=== PATIENT | male | born 2005 | race Hispanic/Latino ===

== ENCOUNTER 2024-11-22 01:31 | Emergency (ER) | payer SELFPAY ==
[2024-11-22] VITALS (9 sets, daily range): BP systolic 109–132; BP diastolic 58–82; PULSE 51–84; RESP 12–23; TEMP 37.2; O2SAT 98–100
--- NOTE | ~2024-11-22 | CT_ITS ---
CT of the Abdomen and Pelvis: Indication: Abdominal pain Technique: 2.5 mm axial scans were obtained through the abdomen and pelvis following intravenous adm inistration of 100 cc of Omnipaque 350. Dose reduction technique was used on this scan by utilizing a utomated exposure control and iterative reconstruction technique. The dose-length product (DLP) was 2 70.18 mGy-cm. Findings: Scans through the lung bases are unremarkable. The liver, spleen, pancreas, gallbladder, adrenals and kidneys are within normal limits. No evidence of aortic aneurysm. No lymphadenopathy. Questionable extensive large bowel wall thickening versus underdistention. No abscess or free air. No bowel obstruction. Images through the pelvis were performed. Urinary bladder unremarkable. No pelvic mass seen. Impression: Questionable extensive large bowel wall thickening versus underdistention. Correlate for any possibil ity of infectious/inflammatory colitis. Reviewed, dictated and finalized at [facility]. Impression: Questionable extensive large bowel wall thickening versus underdistention. Barbara elate for any possibility of infectious/inflammatory colitis.
[2024-11-22] MEDS: MORPHINE SULFATE (*CRX) 4 MG/ML INJ IV PUSH ×2 (01:44→03:59)
[2024-11-22] MEDS: ONDANSETRON INJ 4 MG/2 ML VIAL IV PUSH (01:44)
--- NOTE | 2024-11-22 01:45 | ED_ITS ---
HPI - Abdominal Pain General Chief Complaint: Abdominal Pain Stated Complaint: RLQ pain x 20 min Time Seen by Provider: 11/22/24 01:32 History of Present Illness HPI narrative: Patient had been feeling fine when suddenly he started having sharp severe pain to his right lower abdomen, came out of nowhere, causes double over and call for help, associated with nausea vomiting and chills. Has never had symptoms like this before, no dysuria or hematuria, no back pain. Related Data Allergies Allergy/AdvReac Type Severity Reaction Status Date / Time No Known Allergies Allergy Verified 11/22/24 01:40 Review of Systems 2 Review of Systems: All systems reviewed & are unremarkable except as noted in HPI and below Exam 2 Narrative: EXAMINATION OF ORGAN SYSTEMS/BODY AREAS: Constitutional: Vital signs per nursing GENERAL:[No acute distress, non-toxic appearing.] HEAD: Normal with no signs of head trauma. EYES: EOMI, conjunctiva normal ENT: Hearing grossly intact LUNGS: Nonlabored breathing. HEART: [Regular rate and rhythm] ABD: Some tenderness over entire abdomen, most in the right lower quadrant, soft, no guarding. No flank tenderness EXT: Normal range of motion SKIN: [No rashes or lesions.] NEURO: [Alert and oriented x 3. No gross focal sensory or strength deficits.] PSYCH: Normal affect Course Vital Signs Vital signs: Vital Signs Temperature 98.9 F 11/22/24 01:33 Pulse Rate 83 11/22/24 01:33 Respiratory Rate 19 11/22/24 01:33 Blood Pressure 132/74 11/22/24 01:33 Pulse Oximetry 100 11/22/24 01:33 Oxygen Delivery Room Air 11/22/24 01:33 Temperature 98.9 F 11/22/24 01:33 Pulse Rate 51 L 11/22/24 05:30 Respiratory Rate 12 11/22/24 05:30 Blood Pressure 112/73 11/22/24 05:30 Pulse Oximetry 100 11/22/24 05:30 Oxygen Delivery Room Air 11/22/24 01:33 MDM - Abdominal Pain MDM Narrative Medical decision making narrative: Electronic medical record was reviewed. Patient presented to the ED with complaint of [abdominal pain and vomiting]. Vitals [were within acceptable limits]. Physical exam revealed [tenderness to palpation in right lower quadrant]. Denies any testicular or scrotal pain or dysuria. No flank pain. Based on the patient's history and physical exam, my differential includes but is not limited to [gastritis, gastroenteritis, appendicitis, nephrolithiasis]. [IV access was established by nursing staff. Patient was given zofran, morphine]. CBC, BMP, lipase, LFTs, bilirubin and alk phos were obtained. Labs were pertinent for labs within acceptable. [Decision was made to obtain a CT-abdomen to evaluate for acute abdominal process.] On re-evaluation, patient pain improved with morphine but still having significant pain so additional dose ordered. On re-evaluation, patient feeling much better, symptoms essentially resolved. CT scan without any acute abnormality other than some potential colitis. I will have him follow up with Gastroenterology and return to the ER for any further issues. Prescriptions provided. Patient agreeable to this plan. Customer Specialist used. Lab Data 11/22/24 01:41 11/22/24 01:41 Labs: Lab Results 11/22/24 Range/Units 01:41 WBC 9.1 (4.5-10.0) K/mm3 RBC 5.14 (4.6-6.20) M/mm3 Hgb 15.0 (14.0-18.0) g/dL Hct 44.1 (42.0-52.0) % MCV 85.8 (80-100) fl MCH 29.2 (26-34) pg MCHC 34.0 (32-36) g/dl RDW 12.3 (11.5-14.5) % Plt Count 314 (150-375) k/mm3 MPV 8.8 (7.4-10.4) fl Immature Gran % (Auto) 0.1 (0-0.5) % Neut % (Auto) 32.6 L (45.5-73.1) % Lymph % (Auto) 46.4 H (18.3-44.2) % [place] % (Auto) 7.6 (2.6-8.5) % Eos % (Auto) 12.5 H (0-4.4) % Baso % (Auto) 0.8 (0.2-1.2) % Lymph # (Auto) 4.20 H (0.9-3.2) K/mm3 [place] # (Auto) 0.7 H (0.1-0.6) K/mm3 Eos # (Auto) 1.1 H (0-0.3) K/mm3 Baso # (Auto) 0.1 (0.0-0.1) K/mm3 Abs Immat Gran (auto) 0.01 (0.00-0.031) K/mm3 Absolute Neuts (auto) 3.0 (1.3-6.7) K/mm3 Absolute Nucleated RBC 0.000 (0.0-0.012) K/mm3 Nucleated RBC % 0.0 (0.0-0.2) % Sodium 139 (137-145) mmol/L Potassium 3.8 (3.4-5.0) mmol/L Chloride 103 (98-107) mmol/L Carbon Dioxide 23 (22-30) mmol/L Anion Gap 13 H (4-12) mmol/L BUN 9 (9-20) mg/dL Creatinine 0.84 (0.7-1.3) mg/dL Estim Creat Clear Calc 129 ml/min Estimated GFR > 60 (59 - ) Glucose 112 H (65-110) mg/dL Calcium 8.7 (8.4-10.2) mg/dL Total Bilirubin 0.6 (0.2-1.3) mg/dL AST 30 (17-59) U/L ALT 23 (6-50) U/L Alkaline Phosphatase 53 (38-126) U/L Total Protein 8.2 (6.3-8.2) g/dL Albumin 4.9 (3.5-5.1) g/dL Lipase 35 (23-300) U/L Imaging Data Radiologist's impression: ITS Impressions Abdomen/Pelvis CT 11/22/24 06:24 Impression: Questionable extensive large bowel wall thickening versus underdistention. Correlate for any possibility of infectious/inflammatory colitis. Discharge Plan Discharge Clinical Impression: Colitis Patient Disposition: Home Condition: Stable Instructions: Colitis (ED) Additional Instructions: Please follow-up with the GI doctor, try the medications as prescribed, and if your symptoms get worse, you can always return to the emergency room. Patient Language: Bel[place]ian Prescriptions: New acetaminophen [Tylenol Extra Strength] 500 mg tablet 1,000 mg PO Q6H PRN (Reason: pain) Qty: 50 0RF dicyclomine 20 mg tablet 20 mg PO TID PRN (Reason: abdominal pain) Qty: 30 0RF ondansetron 4 mg tablet,disintegrating 4 mg PO Q8H PRN (Reason: nausea and vomiting) Qty: 10 0RF Follow-up/Referrals: Asa Henriquez MD [Physician] - 2 Days
[2024-11-22 01:47] LABS: Basophils Absolute Auto 0.1 K/mm3 (0.0-0.1); Basophils Percent Auto 0.8 % (0.2-1.2); Eosinophils Absolute Auto 1.1 K/mm3 (0-0.3); Eosinophils Percent Auto 12.5 % (0-4.4); Hematocrit 44.1 % (42.0-52.0); Immature Granulocyte Absolute 0.01 K/mm3 (0.00-0.031); Immature Granulocyte Percent A 0.1 % (0-0.5); Lymphocytes Percent Auto 46.4 % (18.3-44.2); Mean Corpuscular Hemoglobin 29.2 pg (26-34); Mean Corpuscular Volume 85.8 fl (80-100); Mean Platelet Volume 8.8 fl (7.4-10.4); Monocytes Absolute Auto 0.7 K/mm3 (0.1-0.6); Monocytes Percent Auto 7.6 % (2.6-8.5); Neutrophils Percent Auto 32.6 % (45.5-73.1); Platelet Count Result 314 k/mm3 (150-375); Red Blood Count 5.14 M/mm3 (4.6-6.20); Red Cell Distribution Width 12.3 % (11.5-14.5); White Blood Count 9.1 K/mm3 (4.5-10.0)
[2024-11-22 01:57] LABS: Alanine Aminotransferase 23 U/L (6-50); Albumin Level 4.9 g/dL (3.5-5.1); Alkaline Phosphatase 53 U/L (38-126); Anion Gap 13 mmol/L (4-12); Aspartate Amino Transferase 30 U/L (17-59); Bilirubin,Total 0.6 mg/dL (0.2-1.3); Blood Urea Nitrogen 9 mg/dL (9-20); Calcium 8.7 mg/dL (8.4-10.2); Carbon Dioxide 23 mmol/L (22-30); Chloride 103 mmol/L (98-107); Estimated CRCL calculation 129 ml/min; Estimated Glomerular Filt Rate > 60; Glucose 112 mg/dL (65-110); Lipase 35 U/L (23-300); Potassium 3.8 mmol/L (3.4-5.0); Sodium 139 mmol/L (137-145); Total Protein 8.2 g/dL (6.3-8.2)
== END 2024-11-22 06:48 | disposition home or self-care (01) ==
PROVIDERS: Emergency Provider Emergency Medicine
DX: K52.9 Noninfective gastroenteritis and colitis, unspecified (principal)
CPT/HCPCS: 36415; 74177; 80053; 83690; 85025; 96374; 96375; 96376; 99284; J2270; J2405; Q9967